=== PATIENT | female | born 1975 | race Two or more races ===

== ENCOUNTER 2024-05-03 21:06 | Emergency (ER) | payer OTHER ==
[2024-05-03 22:57] LABS: CORONAVIRUS COVID-19 NAA NEGATIVE (NEGATIVE); INFLUENZA A NAA NEGATIVE (NEGATIVE); INFLUENZA B NAA NEGATIVE (NEGATIVE)
== END 2024-05-03 23:07 | disposition home or self-care (01) ==
LOC: MW.ED 21:06
DX: J32.9 Chronic sinusitis, unspecified (principal); Z79.899 Other long term (current) drug therapy; Z75.8 Other problems related to medical facilities and other health care
CPT/HCPCS: 0240U; 87651; 99284; 99283